=== PATIENT | male | born 1995 | race African-American/Black ===

== ENCOUNTER 2022-02-21 02:40 | Emergency (ER) | payer MEDICAID, OTHER ==
[~2022-02-21] VITALS: Ht 177.8 cm; Wt 75.0 kg
[2022-02-21 03:05] VITALS: BP 121/85
== END 2022-02-21 05:10 ==
LOC: ER 02:40
DX: M25.512 Pain in left shoulder (principal); M25.511 Pain in right shoulder; Z88.8 Allergy status to other drugs, medicaments and biological substances; Y35.893A Legal intervention involving other specified means, suspect injured, initial encounter; Y93.89 Activity, other specified; Y92.488 Other paved roadways as the place of occurrence of the external cause
CPT/HCPCS: 99283